=== PATIENT | female | born 1980 | race Caucasian/White ===

== ENCOUNTER 2018-12-21 18:20 | Emergency (ER) | payer MEDICAID ==
[~2018-12-21] VITALS: Ht 167.6 cm; Wt 86.6 kg
[~2018-12-21 18:20] MED LIST: CAL; COLACE100 MG PO; D3-50001 TAB PO; LEVOXYL0.1 MG PO; MONO-LINYAH1 TAB PO; MOTRIN800 MG PO; NOR10T PO; OMEPRAZOLE DR20 M1 PO; TRAMADOL HCL50 MG PO; VITAMIN D5000 I3; VITAMIN D50000 I4; VITD
[2018-12-21 18:37] VITALS: Ht 167.6 cm; Wt 86.6 kg
[2018-12-21 19:13] LABS: BASOPHIL % 0.7 % (0-2); PLATELET COUNT 212 x10^3mcL (130-400); RED CELL DISTRIBUTION WIDTH 13.9 % (11.5-14.5)
[2018-12-21 19:50] VITALS: BP 103/72
== END 2018-12-21 19:50 | disposition home or self-care (01) ==
LOC: ED 18:20
PROVIDERS: Emergency Medicine
DX: N93.8 Other specified abnormal uterine and vaginal bleeding (principal); Z98.890 Other specified postprocedural states
CPT/HCPCS: 36415

== ENCOUNTER 2019-03-24 21:59 | Emergency (ER) | payer MEDICAID ==
[~2019-03-24] VITALS: Ht 167.6 cm; Wt 86.2 kg
[2019-03-24 22:04] VITALS: Ht 167.6 cm; Wt 86.2 kg
[2019-03-24 23:30] VITALS: BP 103/74
== END 2019-03-24 23:30 | disposition home or self-care (01) ==
LOC: ED 21:59
DX: S31.119D Laceration without foreign body of abdominal wall, unspecified quadrant without penetration into peritoneal cavity, subsequent encounter (principal); Z98.890 Other specified postprocedural states; X58.XXXD Exposure to other specified factors, subsequent encounter